=== PATIENT | female | born 1985 | race African-American/Black ===

== ENCOUNTER 2017-09-28 03:03 | Emergency (ER) | payer MEDICAID, OTHER ==
[~2017-09-28] VITALS: Ht 165.1 cm; Wt 69.4 kg
[2017-09-28 06:01] LABS: CLARITY URINE CLOUDY (CLEAR); COLOR URINE YELLOW (YELLOW); KETONES URINE NEGATIVE (NEGATIVE); LEUKOCYTE ESTERASE URINE 3+ (NEGATIVE); NITRITE URINE NEGATIVE (NEGATIVE); OCCULT BLOOD URINE 1+ (NEGATIVE); PH URINE 5.5 (4.5-8.0); PROTEIN URINE NEGATIVE (NEGATIVE); SPECIFIC GRAVITY URINE 1.015 (1.005-1.030); UROBILINOGEN URINE 0.2 E.U./dL (0.2-1.0)
[2017-09-28] MEDS ORDERED: AZITHROMYCIN 500 MG TABLET PO ONE (06:30)
[2017-09-28] MEDS ORDERED: CEFTRIAXONE SODIUM 250 MG/VIAL IM ONE (06:30)
[2017-09-28 07:02] LABS: UCG SCREEN NEGATIVE
[2017-09-28 07:25] VITALS: BP 102/52
[2017-09-28] MEDS ORDERED: FLUCONAZOLE 150MG TABLET PO ONE (07:30)
== END 2017-09-28 08:01 | disposition home or self-care (01) ==
LOC: ER 03:03
DX: B37.3 Candidiasis of vulva and vagina (principal); B96.89 Other specified bacterial agents as the cause of diseases classified elsewhere; N39.0 Urinary tract infection, site not specified
CPT/HCPCS: 81001; 81025; 87077; 87086; 87186; 87210; 96372; 99284; J0696

== ENCOUNTER 2019-06-12 19:03 | Emergency (ER) | payer MEDICAID, OTHER ==
[~2019-06-12] VITALS: Ht 165.1 cm; Wt 66.0 kg
[2019-06-12 20:24] VITALS: BP 107/73
== END 2019-06-12 21:02 | disposition home or self-care (01) ==
LOC: ER 19:03
DX: S40.862A Insect bite (nonvenomous) of left upper arm, initial encounter (principal); S40.861A Insect bite (nonvenomous) of right upper arm, initial encounter; S80.862A Insect bite (nonvenomous), left lower leg, initial encounter; S80.861A Insect bite (nonvenomous), right lower leg, initial encounter; W57.XXXA Bitten or stung by nonvenomous insect and other nonvenomous arthropods, initial encounter; Y93.89 Activity, other specified; Y92.018 Other place in single-family (private) house as the place of occurrence of the external cause
CPT/HCPCS: 99282

== ENCOUNTER 2020-08-26 10:34 | Emergency (ER) | payer MEDICAID, OTHER ==
[~2020-08-26] VITALS: Ht 165.1 cm; Wt 66.0 kg
[2020-08-26 12:02] LABS: CLARITY URINE CLEAR (CLEAR); COLOR URINE YELLOW (YELLOW); KETONES URINE 1+ (NEGATIVE); LEUKOCYTE ESTERASE URINE NEGATIVE (NEGATIVE); NITRITE URINE NEGATIVE (NEGATIVE); OCCULT BLOOD URINE 1+ (NEGATIVE); PH URINE 6.5 (4.5-8.0); PROTEIN URINE NEGATIVE (NEGATIVE); SPECIFIC GRAVITY URINE 1.016 (1.005-1.030); UROBILINOGEN URINE 0.2 E.U./dL (0.2-1.0)
[2020-08-26 12:15] LABS: *BENZODIAZEPINES SCREEN URINE NEGATIVE (NEGATIVE); *COCAINE SCREEN URINE NEGATIVE (NEGATIVE)
[2020-08-26 12:16] LABS: *AMPHETAMINES SCREEN URINE NEGATIVE (NEGATIVE); *BARBITURATES SCREEN URINE NEGATIVE (NEGATIVE); METHADONE URINE SCREEN NEGATIVE (NEGATIVE); OPIATES URINE SCREEN NEGATIVE (NEGATIVE); PHENCYCLIDINE URINE SCREEN NEGATIVE (NEGATIVE)
[2020-08-26 12:29] LABS: CANNABINOID URINE SCREEN PRESUMTIVE POSITIVE (NEGATIVE)
[2020-08-26 12:42] LABS: BASOPHILS % 0.7 % (0.0-2.0); EOSINOPHILS % 0.4 % (0.0-5.0); HEMATOCRIT. 40.8 % (36.0-48.0); LYMPHOCYTES % 41.6 % (20.0-50.0); MEAN CORPUSCULAR HEMOGLOBIN 30.7 pg (28.0-32.0); MEAN CORPUSCULAR VOLUME 89.6 fL (81.0-99.0); MEAN PLATELET VOLUME 9.7 fl (7.4-10.4); MONOCYTES % 7.5 % (2.0-8.0); NEUTROPHILS % 49.8 % (40.0-76.0); PLATELET 160 x1000/uL (130-400); RED BLOOD CELL COUNT 4.55 mill/uL (4.2-5.4); RED CELL DISTRIBUTION WIDTH 13.4 % (11.6-14.6)
[2020-08-26 12:47] LABS: CHLORIDE 105 mEq/L (98-107)
[2020-08-26 13:26] LABS: B-HCG QUANTITATIVE 42667 mIU/mL (<3)
[2020-08-26 14:40] VITALS: BP 115/71
== END 2020-08-26 14:40 | disposition home or self-care (01) ==
LOC: ER 10:34
DX: O20.0 Threatened abortion (principal); Z3A.01 Less than 8 weeks gestation of pregnancy; O09.521 Supervision of elderly multigravida, first trimester
CPT/HCPCS: 36415; 76801; 80053; 80305; 81003; 81025; 84702; 85025; 86850; 86900; 99285

== ENCOUNTER 2021-04-22 10:11 | Emergency (ER) | payer MEDICAID ==
[~2021-04-22] VITALS: Ht 165.1 cm; Wt 78.0 kg
[~2021-04-22 10:11] MED LIST: IBUP-2028 PO; PNV1TABL76 PO
[2021-04-22] MEDS ORDERED: ACETAMINOPHEN 325MG TABLET PO ONE (12:15)
[2021-04-22] MEDS ORDERED: IBUPROFEN 400MG TABLET PO ONE (12:15)
[2021-04-22 12:33] VITALS: BP 122/55
== END 2021-04-22 14:28 | disposition home or self-care (01) ==
LOC: ER 10:11
DX: U07.1 COVID-19 (principal); B34.9 Viral infection, unspecified; R50.9 Fever, unspecified; R00.0 Tachycardia, unspecified; R51.9 Headache, unspecified; Z98.890 Other specified postprocedural states
CPT/HCPCS: 87426; 99283; Z7610

== ENCOUNTER 2022-12-21 21:00 | Emergency (ER) | payer MEDICAID ==
[~2022-12-21] VITALS: Ht 165.1 cm; Wt 79.5 kg
[2022-12-21] MEDS ORDERED: IBUPROFEN 400MG TABLET PO ONE (23:30)
[2022-12-21 23:35] VITALS: BP 100/65
[2022-12-22] MEDS ORDERED: IBUP-2028 MT (01:05)
== END 2022-12-22 01:21 | disposition home or self-care (01) ==
LOC: ER 21:00
DX: J02.8 Acute pharyngitis due to other specified organisms (principal); B34.9 Viral infection, unspecified
CPT/HCPCS: 87070; 87430; 99283